=== PATIENT | male | born 1995 | race Caucasian/White ===

== ENCOUNTER 2022-03-11 13:22 | Emergency (ER) | payer BC, MEDICAID ==
[~2022-03-11] VITALS: Ht 167.6 cm; Wt 128.0 kg
[2022-03-11 13:52] VITALS: BP 155/100
== END 2022-03-11 18:12 | disposition home or self-care (01) ==
LOC: ER 13:28
DX: R53.83 Other fatigue (principal); R06.02 Shortness of breath; J45.909 Unspecified asthma, uncomplicated; Z20.822 Contact with and (suspected) exposure to COVID-19
CPT/HCPCS: 71045; 87426; 93005; 99285